=== PATIENT | male | born 2000 | race Caucasian/White ===

== ENCOUNTER 2021-02-08 21:04 | Emergency (ER) | payer OTHER, SELFPAY ==
[2021-02-08 21:33] VITALS: BP 132/63; PULSE 70; RESP 16; TEMP 36.9; O2SAT 99; BMI 22.6
--- NOTE | 2021-02-09 01:28 | ED_ITS ---
HPI - Eye Problem General Chief complaint: Eye Problems Stated complaint: something in rt eye, won't wash out Time Seen by Provider: 02/09/21 01:18 Source: patient Mode of arrival: Ambulatory Limitations: no limitations History of Present Illness HPI Narrative: Otherwise healthy 21-year-old gentleman presents with foreign body sensation to the right eye. He notes that [place] feels that there is a minor amount of debris that got into the eye. He did try to rinse it out but did not have the luck. He is not having any visual acuity changes were headache. Related Data Allergies Allergy/AdvReac Type Severity Reaction Status Date / Time No Known Drug Allergies Allergy Verified 02/08/21 21:33 Review of Systems Review of Systems Narrative: Remainder of complete review of systems is otherwise unremarkable e xcept for that included in the HPI. Patient History Social History Smoking Status: Never smoker Smoking Status: Never smoker alcohol intake frequency: a few times a week Alcohol type: beer and wine Substance Use Type: does not use Exam Narrative Exam Narrative: General: Alert appropriate in no acute distress HEENT: Minor speck of debris on the nasal side of the cornea that is moderately imbedded with out evidence of corneal laceration, globe rupture or rust ring. There is no debris on the undersurface of the eyelid when examined. Respiratory: Able to speak in full sentences, no obvious respiratory distress Skin: No obvious rashes, warm and dry Neurologic: Grossly intact no obvious asymmetries or abnormalities Psych: appropriate insight and affect, cooperative Initial Vital Signs Initial Vital Signs: Vital Signs Temperature 98.4 F 02/08/21 21:33 Pulse Rate 70 02/08/21 21:33 Respiratory Rate 16 02/08/21 21:33 Blood Pressure 132/63 02/08/21 21:33 Pulse Oximetry 99 02/08/21 21:33 Procedures Foreign Body EYE Time of procedure: 01:30 Location: eye (R) Topical anesthetic used: proparacaine Foreign body: other (Appears to be dirt) Evidence of corneal penetration: No Technique: irrigation and cotton tip swab Procedure performed under: direct visualization with magnification Patient tolerated procedure: well Course Vital Signs Vital signs: Vital Signs - 8 hr 02/08/21 21:33 Temperature 98.4 F Pulse Rate 70 Respiratory Rate 16 Blood Pressure 132/63 Pulse Oximetry 99 MDM - Eye Problem MDM Narrative Medical decision making narrative: 21-year-old gentleman a small bit of dirt debris stuck to the medial aspect the right eye cornea. Most was able to be removed without difficulty. There is still a small that left and the trauma to the eye and surrounding tissue was not felt to be appropriate to continue to try to remove that. No visual acuity changes. He is safe for home discharge. Discharge Plan Departure Patient Disposition: Home Clinical Impression: Eye foreign body Qualifiers: Encounter type: initial encounter Laterality: right Qualified Code(s): T15.91XA - Foreign body on external eye, part unspecified, right eye, initial encounter Instructions: How to Get a Foreign Body Out of Your Eye Activity Restrictions/Additional Instructions: Thank you for coming in tonight You did have a small bit of debris on the inner portion of your cornea. It looks like it was most likely dirt. I was able to get at least 95% of it out and I suspect that your body will be able to handle the rest of it. There did not appear to be any additional damage. If you have worsening pain, discharge from your eye, or any visual changes tomorrow you do need to be seen and re-evaluated. I hope you heal quickly. Tell your mom and dad I said michele:)
[2021-02-09 01:39] VITALS: BP 140/70; PULSE 72; RESP 18; O2SAT 99
== END 2021-02-09 01:40 | disposition home or self-care (01) ==
PROVIDERS: Emergency Provider Emergency Medicine
DX: T15.01XA Foreign body in cornea, right eye, initial encounter (principal); X58.XXXA Exposure to other specified factors, initial encounter
CPT/HCPCS: 99281; 99282